=== PATIENT | female | born 1980 ===

== ENCOUNTER → 2024-02-16 | Outpatient (REF) | LOC: M EMP 02-15 15:45 | PROVIDERS: ATTEND Family Medicine | DX: Z11.52 Encounter for screening for COVID-19 (principal) ==

== ENCOUNTER → 2024-05-15 | Outpatient (REF) | LOC: M EMP 05-14 12:50 | PROVIDERS: ATTEND Family Medicine | DX: Z01.89 Encounter for other specified special examinations (principal) ==